=== PATIENT | male | born 1975 | race Caucasian/White ===

== ENCOUNTER 2016-11-27 13:03 | Inpatient (IN) | payer OTHER ==
[~2016-11-27] VITALS: Ht 172.7 cm; Wt 69.6 kg
[2016-11-27] VITALS (9 sets, daily range): BP systolic 110–127; BP diastolic 58–76; PULSE 80–98; RESP 13–21; O2SAT 99–100
[2016-11-27] MEDS: Octreotide Inj 500 MCG in 0.9% Sodium Chloride 99 ML IV SCH ×2 (14:25→19:39)
[2016-11-27] MEDS ORDERED: 0.9% Sodium Chloride 1,000 ML IV SCH (14:37)
[2016-11-27] MEDS ORDERED: Alum-Mag Hydrox-Simeth 30 mL Suspension PO PRN (14:40)
[2016-11-27] MEDS ORDERED: Senna-Docusate 8.6-50 mg Tablet PO PRN (14:40)
[2016-11-27] MEDS ORDERED: Ondansetron 2 mg/mL 2 mL Inj IVPUSH PRN ×2 (14:40→20:55)
[2016-11-27] MEDS ORDERED: Polyethylene Glycol (PEG) 17 Gm Powder PO PRN (14:40)
--- NOTE | 2016-11-27 14:49 | PCM.CHPMED ---
Subjective Date of Service: Nov 27, 2016 Primary Physician: Admitting Physician: Marito Rabago MD Primary Care Physician: Kulwinder Attending Physician: Marito Rabago MD Admit Status: Direct Admit, Non-Telemetry Chief Complaint: Chief Complaint: Reason for consultation: upper GI bleed History of Present Illness: GASTROENTEROLOGY CONSULTATION: Mr. Grabiel Gibson is a 41 yo man with history of alcohol use disorder, psoriasis, and depression who was sent to [facility] from [facility] for acute anemia likely secondary to upper GI bleed. The patient presented to the ED at [facility] for intermittent hematemesis in the last 4 days. He reports to wake up with severe bouts of hematemesis and dark, tarry stools at 0300 am on Friday 11/24. He assumed that it was from a Norovirus that has been going around the [place]. His symptoms spontaneously resolved, but he has been feeling very weak, fatigue, nauseous and short of breath. At around 1630 yester11/26, the hematemesis came back and his generalized weakness worsens. However, he has not had any BM since Thursday. [place] the ferry from [place] to the [facility] this morning and was found to have tachycardia (139) with a Hemoglobin of 4.0. U/S abdomen also showed portal vein thrombosis. He got 2 units of PRBCs and was transferred to [facility] for GI service. The patient reports history of heavy drinking in the last 8-9 years. He states that this started due to relationship issue and depression. He drinks about 4-5 shots of Whiskey per day or more. The last drink was last Wednesday 11/22. Patient also reports history of elevated LFTs on routine labs in March 2016. This has improved after he cut down the alcoholic consumption. Patient denies any history of GI bleed or was diagnosed of varices in the past. He has never had an endoscopy before. He admits to history of GERD. Patient denies daily NSAIDs or Tylenol use. He is not taking any medication at this point. No family history of liver disease or alcoholism. Currently, patient reports improvement after the blood transfusion. He denies any abdominal pain, nausea, vomiting, fever, chills, CP, or SOB. Review of Systems: Constitutional: Reports: Malaise, Weakness, Denies: Chills, Fever Eyes: Denies: Blurred Vision, Double Vision, Pain ENT: Denies: Ear Pain Neck: Denies: Pain, Swelling Cardiovascular: Reports: Palpitations, Rapid Heart Rate, SOB on Exertion, Denies: Chest Pain, Edema, Irregular Heart Rate Respiratory: Reports: SOB with Exertion, Shortness of Breath, Denies: Cough, Sputum, Wheezing Gastrointestinal: Reports: Black tarry stools, Change in Appetite, Constipation , Heartburn, Nausea, Vomiting (hematemesis), Denies: Abdominal Pain, Blood in stool (red), Diarrhea Genitourinary: Reports: No burning or pain with urination, Denies: Dysuria, Hematuria Skin: Reports: Dry or Flakiness, Itching, Lesions, Rash Neurological: Reports: Dizziness, Denies: Confusion, Difficulty Walking, Numbness Psychologic: Reports: Depression, Denies: Agitation, Anxiety H Past Medical History Alcohol use disorder Depression Psoriasis Surgical History Reports none Home Medications Reports none Allergies: Coded Allergies: No Known Allergies (Unverified , 11/27/16) Social History Hx Alcohol Use: Yes (>5 shots of Whiskey daily)Hx Substance Use: Yes ( occasional Marijuana use) Smoking Status: Current Every Day Smoker (1/2-1 ppd for 20 years) Living Arrangement: Alone (Lives on [place], .) Exam General: Alert, Oriented X3, Cooperative, No Acute Distress, Other (pale) Eyes: PERRLA, EOMI, Scleral Anicteric, Other (pale sclera) Mouth: Mouth Normal, Mucous Membr Moist/[place] Neck: Supple, No Thyromegaly Chest & Lungs: Chest Wall Normal, Clear to auscultation & percussion, No adventitious breath sounds Cardiovascular: Exam Unremarkable, Regular Rate/Rhythm, Normal S1, Normal S2, No Murmurs/Rubs/Gallops Abdomen: Non-distended, No hepatosplenomegaly, Normoactive bowel tones, Soft, Other (mild discomfort on palpation at the epigastric area) Musculoskeletal: Unremarkable, Normal Range of Motion Extremities: No cyanosis/clubbing/edma bilat Skin: Other (dry, flaky paches on the bilateral lower extremities. No jaundice. ) Neurological: Grossly Neurologically Intact, Normal Speech, Strength Normal 4/ 4 ext Assessment & Plan Assessment This is a 41 yo man with history of alcohol use disorder, psoriasis, and depression who was sent to [facility] from [facility] for acute anemia likely secondary to upper GI bleed. The patient presented to the ED at [facility] for intermittent hematemesis in the last 4 days. He also had an episode of melena. He was found to have profound acute anemia with hemoglobin of 4 s/p 2 units of PRBC transfusion. The U/S also showed evidence of portal vein thrombosis. The causes of upper GI bleed are likely to be esophageal varices bleeding vs. bleeding peptic ulcer vs. Cynthia-Lewis tears vs. acute stress gastritis vs. gastropathy. Impressions: 1. Acute anemia secondary to upper GI bleeding s/p 2 units of PRBC. 2. Thrombosis of portal veins on U/S abd. 3. History of alcoholic liver disease. Recommendations: - NPO - Initiate Protonix drip and Octreotide drip. - Repeat CBC, CMP, and Protime - Nadeau of an upper endoscopy was discussed with the patient and he agreed to proceed. Will plan for an EGD this afternoon. - Monitor serial H/H and transfusion as needed. We will defer the transfusion plan to the primary care team. - His AST/ALT ration is almost 2:1, which is consistent with alcohol abuse. However, will need to rule out hemochromatosis, Eleazar's disease, Celiac's disease, Thyroid dysfunction, fatty liver, alpha-1 antitrypsin, and hepatitis. - Check Lipid panel, Iron panel, ceruloplasmin, [id number], Transglutaminase IgA, TSH+FreeT4, and hepatitis panel. - Consider ordering the CT abdomen with contrast after the EGD to confirm the thrombosis of portal veins. Thank you for allowing us participate in this patient's care. Do not hesitate to contact us for any question. Problems: Pain Evaluation: Adequate Pain Control VTE Prophylaxis Indicated: Contraindicated (due to active bleeding) VTE Prophylaxis: SCDs Resuscitation Status: CPR: Attempt Resuscitation Attending Statement Patient seen and examined with resident physician please see her H and P for details 41 y/o man with ETOH abuse since age of 18, He drinks 1 bottle of bourbon daily , has done this for past 5 years states he drank less prior to this but did drink daily. reports he was told 1 year ago he had liver test abnormalities and was recommend ed to stop ETOH use he presented to outside hospital with hematemesis and melena. His initial hemoglobin was 4.1. He has no known history of jaundice, ascites, hepatic encephalopathy or prior hematemesis. He has no other complaints, denies abdominal pain. Plan for EGD once resuscitated with blood NPO 2 large bore IV Follow H/H an keep hemoglobin between 7-9 Octreotide and PPI drip IV ceftriaxone CT abdomen with contrast to evaluate ? portal vein thrombosis Discussed with primary team Chas Shirley DO Nov 27, 2016 14:49 Clint Garcia MD Nov 27, 2016 18:33
--- NOTE | 2016-11-27 15:03 | PCM.HPMED ---
Subjective Date of Service Nov 27, 2016 Primary Provider: Admitting Physician: Marito Rabago MD Primary Care Physician: Kulwinder Attending Physician: Marito Rabago MD Admit Status: Direct Admit, Full Admit, Admit to [facility] Team, Critical Care Chief Complaint: Recurrent hematemesis, GI bleed with significant acute blood loss anemia. History of Present Illness: This is a 46-year-old gentleman with a history of alcohol abuse who has had about 4 days of intermittent hematemesis and at least 2 episodes of black tarry stools. The patient has had progressive lightheadedness and weakness as well as dizziness. He had multiple episodes of hematemesis on Thursday morning, one episode on Thursday morning, and 2 episodes on Thursday. She ultimately took the ferry from [facility] was seen in the ER diagnosed with upper GI bleed with acute blood loss anemia and given 2 units of packed red blood cells. He denies really having any abdominal pain. He has no history of GI bleed. He rarely takes aspirin or ibuprofen or Aleve. He does have about a 20 year history of alcohol abuse but no clear-cut history of alcohol liver disease. He describes abnormal liver functions that his doctor warned may relate to alcohol. He has never had imaging of the liver that he is aware of. [facility] from [facility]. There was imaging basic concern for portal vein thrombosis. The patient is currently not a candidate for anticoagulation given his upper GI bleed of unclear etiology. This will be validated with imaging here, specifically CT scan of the abdomen and pelvis with contrast. Review of Systems: He denies headache, visual changes. No alcohol. Symptoms. Last drink was about 4 for 5 days ago. He has had relative cutback in the amount of alcohol use but using the last 6 months but still is essentially drinking on a daily basis. He denies any dysuria he has had oliguria however. He has felt dehydrated and generally weak. His pounding when standing. Also reviewed and otherwise negative except as noted in history of present illness. Allergies Coded Allergies: No Known Allergies (Unverified , 11/27/16) Home Medications Supplements PMH 1. Alcohol abuse Surgical History No past surgical history Family History Negative for alcohol abuse or liver disease or GI bleed. 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 No distress. Fluent speech. Normal affect. Normal skull. Normal nose and ears. Anicteric sclera, symmetric pupils Oropharynx is unremarkable, no facial droop. Neck is supple, normal thyroid. No adenopathy. Lungs are clear, normal effort rate. Heart is regular without murmur gallop or rub. Abdomen soft, nondistended or tender. Extremities are free of pedal edema. Good radial and pedal pulses. Skin is free of rash, lesions. No petechiae or ecchymosis. Joints are grossly normal. Cranial nerves are grossly normal. Motor strength is normal in all extremities. Normal muscular tone. Assessment & Plan 1. Acute upper GI bleed. POA. Differential is various ulcers or other cause. Plan is Protonix and octreotide drips. Serial hematocrits. Blood products as needed. Patient will undergo endoscopy this afternoon. 2. Acute blood loss anemia, POA. We will follow serial hematocrits and transfuse as necessary. 3. Alcohol abuse and possible dependence, POA. We will follow for evidence of occult OR fluid. We will also obtain liver functions and pro time now. 4. Possible portal vein thrombosis. POA. We will obtain a CT scan of the abdomen and pelvis with contrast to rule out portal vein thrombosis. This patient is full resuscitation. He is admitted inpatient status for an anticipated length of stay of over 2 nights. Resuscitation Status: CPR: Attempt Resuscitation Time spent 45 minute Celestine Campos MD Nov 27, 2016 15:03
--- NOTE | 2016-11-27 15:07 | NUR ---
[facility] [place] Admission note: From [facility] at 1400, vital signs stable, HR 80-90s/sinus, afebrile. RA sats 99-100%; SLs X2 bilat anticubital sites. Denies pain or nausea, appears in no distress. Stood indep. to transfer, appears steady. A/O and in good spirits. IVFs and Octreotide infusing; to start Protonix gtt when available. NPO for EGD this afternoon. No further emesis. Labs drawn, results pending.
[2016-11-27 15:09] LABS: BASOPHILS % (AUTO) 0.6 % (0-3); MONOCYTES % (AUTO) 15.3 % (4-12); Mean Corpuscular Hemoglobin 24.7 pg (27.0-35.0); Mean Corpuscular Volume 81.4 fL (81-100); NEUTROPHILS % (AUTO) 65.4 % (40-74); Platelet Count 134 bil/L (150-400)
[2016-11-27 15:25] LABS: INR 1.2 ratio
[2016-11-27] MEDS: 0.9% Sodium Chloride 1,000 ML IV SCH ×2 (15:25→23:21)
[2016-11-27] MEDS: 0.9% Sodium Chloride 250 ML IV SCH (15:30)
[2016-11-27 15:58] LABS: Magnesium 1.6 mg/dL (1.6-2.6)
[2016-11-27] MEDS ORDERED: MULT-544 PO (16:01)
--- NOTE | 2016-11-27 18:19 | DRSVH ---
PROCEDURE: CT ABDOMEN AND PELVIS WITH CONTRAST ([id number]) INDICATIONS: GI bleeding TECHNIQUE: After the administration of oral and intravenous contrast, 5 mm thick sections acquired from the diap hragms to the symphysis. 5 mm thick coronal and sagittal reformats were performed. For radiation do se reduction, the following was used: automated exposure control, adjustment of mA and/or kV accordi ng to patient size. COMPARISON: None. FINDINGS: Image quality: Excellent. ABDOMEN: Lung bases: Lung bases are clear. Heart size is normal. Solid organs: Liver is enlarged measuring 21.3 cm in longitudinal axis. Spleen is enlarged measurin g 14.4 cm in longitudinal axis. Liver has heterogeneous enhancement and slight not slightly nodular margins suggesting hepatic cirrhosis; please correlate with clinical and laboratory data. Prominent perihilar and gastroesophageal veins are noted suspicious for varices related to portal hypertension. Punctate calcification noted in the spleen compatible sequela of prior granulomatous disease. Gall bladder wall is slightly thickened. Small amount of pericholecystic fluid is noted.. Biliary system is non-dilated. Pancreas enhances normally. No adrenal nodules. Kidneys are normal in size and en hancement, without hydronephrosis. Peritoneum and bowel: Stomach, small bowel, and colon loops are normal in caliber. Wall thickening noted in the right and proximal transverse colon which could be due to nondistention versus colitis. No free fluid or air. Nodes and vessels: No retroperitoneal or mesenteric adenopathy. Aorta and inferior vena cava are no rmal in caliber. Miscellaneous: No ventral hernias. PELVIS: Genitourinary: Bladder wall thickness is normal. Miscellaneous: No inguinal hernias or adenopathy. Bones: No suspicious bony lesions. No vertebral body compression fractures. IMPRESSION: 1. Hepatosplenomegaly. 2. Liver is heterogeneous enhancement and slightly nodular margins suggesting hepatic cirrhosis. Pl ease correlate with clinical and laboratory data. 3. Prominent perisplenic and gastro-esophageal veins suspicious for varices related to sequela of po rtal venous hypertension. 4. No free intraperitoneal fluid or air. 5. No dilated loops of bowel. 6. Circumferential wall thickening involving the right colon and proximal transverse colon which cou ld be due to nondistention versus nonspecific colitis. Please correlate with clinical data. 7. Mild gallbladder wall thickening and small amount of pericholecystic fluid. Finding could be rel ated to adjacent hepatic disease versus acute cholecystitis. Recommend abdominal ultrasound if there is clinical concern for cholecystitis. Dictated by: Mary Jo Perez MD, PhD on 11/27/2016 at 18:10 Approved by: Mary Jo Perez MD, PhD on 11/27/2016 at 18:18
--- NOTE | 2016-11-27 19:27 | PCM.HPANE ---
Patient Data Surgeon Admitting Provider:Marito Rabago MD Attending Provider:Marito Rabago MD Primary Care Physician:Kulwinder Other Provider: Reason for Visit Upper Gi Bleed Ht/WT & BMI Height (Feet): 5 Height (Inches): 8.00 Weight (Kilograms): 65.800 Body Mass Index 21.00 Allergies Coded Allergies: No Known Allergies (Unverified , 11/27/16) Past Anesthesia History Anesthesia History: Denies:: Anesthesia Reactions, Malignant Hyperthermia Diabetes History Hx Diabetes?: No MRSA MRSA: No Medications Hypertension Medication: No Home Meds Incl Beta Negro: No Reported Medications Multivitamin (Men's Multi-Vitamin)1 Each Tablet1 Each PO DAILY 11/27/16 History History of ENT Problems?: No HEENT History: Denies:: Hearing Problem Denture Type: None Teeth Condition: Within Normal Limits Hx of Heart Problems?: No Cardiovascular History: Denies:: AICD Abdominal Aortic Aneurism Atrial Fibrillation Cardiac Surgery Chest Pain Congestive Heart Failure Coronary Artery Disease Edema Heart Murmur Hypertension Irregular Heartbeat Pacemaker Peripheral Vascular Rheumatic Fever Thrombophlebitis Valvular Heart Disease Hx of Respiratory Problem?: No Respiratory History: Denies:: Asthma COPD Chest Surgery Cough Dyspnea Emphysema Hemoptysis Oxygen Administration Pneumonia Pulmonary Embolism Tuberculosis Use of C-PAP Machine Use of Inhalers / NEBS Hx Neurologic Problems?: No Neurological History: Denies:: CVA Hx of GI Problems?: Yes Gastrointestinal History: Positive for:: Cirrhosis Hx of Problems?: No HX of Peritoneal Dialysis: No Other Skin Pertinent History: HX PSORIASIS Hx Musculoskeletal Problems?: No Psycho Social History: Positive for:: Anxiety Hx Depression Hx Surgeries?: No (none) Hx Any Other Health Problems?: Yes History Blood Transfusions: Positive for:: Accept Blood Products? 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 Hx Alcohol Use: Yes (>5 shots of Whiskey daily)Alcoholic Drinks Per Day: 1-2 Hx Substance Use: Yes (occasional Marijuana use) Smoking Status: Current Every Day Smoker Stop/Bang Treated for Sleep Apnea?: No Do You Have a CPAP Machine?: No S-Snoring: Do You Snore Loudly: No T-Tired: feel tired, fatigued: No O-Obsered: Observed not breath: No P-Blood Pressure: treated: No B- Body Mass Index > 35 kg/m2: No A- Age over 50: No N- Neck Large Circumference: No G- Gender Male: Yes JACKI Total Score: 1 JACKI Risk Assessment: Low Risk, <3 Yes Risk Assessment Category Category 1A: Patient has history of documented sleep apnea, and HAS NOT received any narcotic, sedative or anesthesia administration during this stay. Category 1B: Patient has history of documented sleep apnea, and HAS received any narcotic , sedative or anesthesia administration during this stay Category 2: Patient has SUSPECTED Obstructive Sleep Apnea, and HAS received any narcotic , sedative or anesthesia administration during this stay. Category 3: Patient has SUSPECTED Obstructive Sleep Apnea and HAS NOT received narcotic, sedative or anesthesia administration during this stay. Category 4: Outpatient in Procedural Areas with known sleep apnea or who screen positive for High Risk via the STOP/BANG questionnaire. Exam Exam Vital Signs Vital Signs Date Time Temp Pulse Resp B/P Pulse Ox O2 Delivery O2 Flow Rate FiO2 11/27/16 14:00 35.9 98 19 120/66 99 Room Air General Appearance: Alert, Oriented X3, Cooperative, No Acute Distress, Other ( pale) HEENT/AIRWAY: MP 2, Neck Movement Lungs: Normal Air Movement Heart: Regular Rate/Rhythm Meds/Labs/Diagnostics Labs Test 11/27/16 14:37 11/27/16 15:00 Lactic Acid Level 0.9mmol/L (0.4-2.0) White Blood Count 9.0th/mm3 (3.8-10.1) Red Blood Count 2.47mil/mm3 (4.40-5.80) Hemoglobin 6.1g/dL (13.8-17.2) Hematocrit 20.1% (41.0-50.0) Mean Corpuscular Volume 81.4fL (81-100) Mean Corpuscular Hemoglobin 24.7pg (27.0-35.0) Mean Corpuscular Hemoglobin Concent 30.3% (32.0-37.0) Red Cell Distribution Width 19.5% (12.3-15.4) Platelet Count 134bil/L (150-400) Neutrophils (%) (Auto) 65.4% (40-74) Lymphocytes (%) (Auto) 16.9% (14-46) Monocytes (%) (Auto) 15.3% (4-12) Eosinophils (%) (Auto) 1.0% (0-5) Basophils (%) (Auto) 0.6% (0-3) Prothrombin Time 12.9sec (8.1-12.5) Prothromb Time International Ratio 1.20ratio Sodium Level 134mEq/L (134-144) Potassium Level 3.8mEq/L (3.5-5.2) Chloride Level 97mEq/L (97-108) Carbon Dioxide Level 20mmol/L (18-29) Blood Urea Nitrogen 16mg/dL (6-24) Creatinine 0.60mg/dL (0.76-1.27) Estimat Glomerular Filtration Rate 159mL/min (>59) Glucose Level 102mg/dL (60-99) Calcium Level 7.8mg/dL (8.5-10.1) Magnesium Level 1.6mg/dL (1.6-2.6) Total Bilirubin 1.5mg/dL (0.0-1.2) Aspartate Amino Transf (AST/SGOT) 65U/L (0-50) Alanine Aminotransferase (ALT/SGPT) 27U/L (0-44) Alkaline Phosphatase 97U/L (25-150) Total Protein 5.6g/dL (6.4-8.4) Albumin 3.6g/dL (3.4-5.0) Prealbumin 14mg/dL (20-40) Plan Impression Patient chart reviewed, patient interviewed and anesthestic plan with risks, benefits, and alternatives discussed, and informed consent obtained. ASA Physical Status: ASA4 Plus Emergency Anesthetic Plan: GA Bene/Risks/Altern/Consents: Yes HP Complete Prior to Induction: Yes Karthik Leonard MD Nov 27, 2016 19:27
[2016-11-27] MEDS: Pantoprazole Inj 80 MG in 0.9% Sodium Chloride 80 ML IV SCH ×2 (19:46→21:16)
[2016-11-27] MEDS ORDERED: Lactated Ringer's 1,000 ML IV SCH (20:53)
--- NOTE | 2016-11-27 20:54 | PCM.ANEP1 ---
Post Anesthesia Phase 1 PACU Phase 1 Assessment Date of Service: Nov 27, 2016 Vital Signs Vital Signs Date Time Temp Pulse Resp B/P Pulse Ox O2 Delivery O2 Flow Rate FiO2 11/27/16 20:15 36.6 80 16 114/69 11/27/16 20:01 36.8 80 16 113/68 11/27/16 19:45 36.8 83 16 111/67 11/27/16 19:33 37.4 84 17 111/67 11/27/16 19:24 37.4 84 17 113/67 99 Room Air 11/27/16 14:00 35.9 98 19 120/66 99 Room Air Anesthetic Administered: GA Level of Alertness: Sleepy, easy to arouse Pain: No Nausea or Vomiting: No Cardiovascular Function and Hy: No Lungs: Normal Air Movement Karthik Leonard MD Nov 27, 2016 20:54
[2016-11-27] MEDS ORDERED: MetoCLOpramide 5 mg/mL 2 mL Inj IVPUSH PRN (20:55)
--- NOTE | 2016-11-27 23:53 | ENDO ---
[address] [address] ENDOSCOPY PROCEDURE PATIENT: KYLE CHEW : 1975 MR#: [id number] ADMIT: 11/27/2016 JOB ID: [id number] DATE OF PROCEDURE: PROCEDURE: Esophagogastroduodenoscopy. INDICATION: Hematemesis. SEDATION: Please see Dr. Karthik Leonard's anesthesia report for details regarding ASA classification, Mallampati score, medications. INSTRUMENT USED: [id number]. PROCEDURE DETAILS: After informed consent was obtained, the patient was brought into the GI suite, where he was placed on oxygen via nasal cannula and monitored with continuous pulse oximeter, telemetry, and blood pressure monitoring. A time-out was performed. Then, he was placed in the left lateral decubitus position and medications were administered for sedation. A bite block was placed. The standard EGD scope was then inserted through the bite block and advanced under direct visualization to the second portion of the duodenum without difficulty. FINDINGS: 1. Normal appearing duodenal bulb, first and second portion. Bile-stained mucosa was noted. No old or fresh blood was seen. 2. Normal appearing pylorus. In the antrum and body of the stomach the mucosa had a mosaic appearance consistent with portal gastropathy. 3. Retroflexed views in the gastric body revealed mucosa with portal with mosaic appearance. No gastric varices were appreciated. 4. The GE junction was at approximately 39 cm. And arising from 38 cm to 30 cm were two large columns of varices. One column had a red amada sign in the distal portion just above the GE junction. Three bands were placed successfully using a [employer] 7 band kit. IMPRESSION: 1. Large esophageal varices with red amada sign, status post band ligation with three bands. 2. Portal gastropathy. RECOMMENDATIONS: 1. N.p.o., no NG or OG tubes. 2. Continue to follow H and H every 8 hours and keep hemoglobin above 7. 3. Discontinue Protonix drip and would recommend Protonix 40 mg IV daily. 4. N.p.o. 5. Continue ICU monitoring. 6. Ceftriaxone 2 g IV daily. 7. Complete chronic liver disease workup. COMPLICATIONS: None. ESTIMATED BLOOD LOSS: less than 5ml MTDD
[2016-11-28] VITALS (8 sets, daily range): BP systolic 111–125; BP diastolic 61–72; PULSE 81–99; RESP 12–24; O2SAT 94–97
[2016-11-28 00:14] LABS: Magnesium 1.6 mg/dL (1.6-2.6); TROPONIN T 0.01 ug/L (0.0-0.011)
[2016-11-28] MEDS ORDERED: Magnesium Sulf 2 Gm/50mL Water 2 GM in IV Premix 1 EACH IV ONE (00:50)
[2016-11-28 03:47] LABS: Mean Corpuscular Hemoglobin 25.8 pg (27.0-35.0)
[2016-11-28 04:20] LABS: Unsaturated Iron Binding 326.5 ug/dL
--- NOTE | 2016-11-28 05:34 | NUR ---
GI/Endo Patient rested well this shift, went to endo about 1944 and back at 2109, had 1 episode of severe chest discomfort about 2229, MD notified and EKG/Troponin ordered, Morphine 1mg given with good relief, pain level was 8/10 prior to Morphine and 2/10 pain within 30 min, patient denied pain this AM at 0430, no c/o this AM, pleasant and cooperative, strict NPO since endo procedure, will continue to monitor.
[2016-11-28] MEDS: cefTRIAXone Inj 2,000 MG in Dextrose 5% Minibag Plus 50 ML IV SCH (07:38)
--- NOTE | 2016-11-28 07:49 | PCM.PNMED ---
Subjective Date of Service Nov 28, 2016 Subjective Patient is doing well this morning. He had some limited chest pain last night. He underwent endoscopy yesterday with banding of esophageal varices. No evidence of recurrent bleeding. No nausea. No abdominal pain. No shortness of breath. No other overnight events other than limited chest pressure. He has received 2 units of packed red blood cells at outside hospital in 2 units here. His hematocrit appears to be stable overnight. Exam Vital Signs Vital Sign - Last Date Time Temp Pulse Resp B/P Pulse Ox O2 Delivery O2 Flow Rate FiO2 11/28/16 07:33 37.4 82 12 122/61 94 Nasal Cannula 1.00 Intake and Output 11/27/16 11/27/16 11/28/16 Cumulative From/Thru 15:00 23:00 07:00 11/25/16 14:00 - 11/28/16 05:37 Intake Total 875 ml 924 ml 1799 ml Output Total 0 ml 1050 ml 1050 ml Balance 875 ml -126 ml 749 ml Intake Oral 0 ml 0 ml IV Total 175 ml 924 ml 1099 ml Packed Cells 700 ml 700 ml Output Urine Total 0 ml 1050 ml 1050 ml Exam Alert and oriented -3, no distress. Fluent speech Anicteric sclera. Lungs are clear with normal rate and effort Heart is regular without murmur gallop or rub Abdomen soft nontender, flat Extremities are free of edema. Skin is free of rash or lesions. IVs and Medications Medications Reviewed: Medications were reviewed in detail Lab and Diagnostics Result Diagram: 11/28/16 0700 11/28/16 0330 Assessment & Plan #. Acute upper GI bleed secondary to esophageal varices.. POA. Stable. The patient is status post endoscopy and ligation banding. He is on octreotide as well as IV Protonix. We will follow his hematocrit serially, nothing by mouth. #. Acute blood loss anemia, POA. We will follow serial hematocrits and transfuse as necessary. He has had 2 units thus far. #. Alcohol abuse and possible dependence, POA. We will follow for evidence of occult OR fluid. We will also obtain liver functions and pro time now. Imaging does indicate evidence of alcohol-induced liver cirrhosis. #. Alcohol induced liver cirrhosis, POA. The patient is on empiric ceftriaxone although imaging does not indicate evidence of ascites. The importance of alcohol cessation was discussed with the patient today. #. Possible portal vein thrombosis. Was ruled out with CT with contrast. #. 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 Oral institute metal wall when clinically stable. This patient is full resuscitation. He is admitted inpatient status for an anticipated length of stay of over 2 nights. VTE Prophylaxis: SCDs Resuscitation Status: CPR: Attempt Resuscitation Celestine Campos MD Nov 28, 2016 07:49
[2016-11-28] MEDS: Octreotide Inj 500 MCG in 0.9% Sodium Chloride 99 ML IV SCH ×2 (08:25→17:42)
[2016-11-28] MEDS: 0.9% Sodium Chloride 1,000 ML IV SCH ×2 (09:07→22:01)
[2016-11-28] MEDS: Pantoprazole 4 mg/mL 10 mL Inj IVPUSH SCH (09:07)
--- NOTE | 2016-11-28 13:33 | PCM.PNMED ---
Subjective Date of Service Nov 28, 2016 Subjective GASTROENTEROLOGY PROGRESS NOTE: Patient reports to feel better, thirsty, and hungry this morning. He reports some chest pain right after the endoscopy last night that improved with pain medication. Otherwise, he denies any nausea, vomiting, hematemesis, or BM. He has no complaint today. Hemoglobin has been stable at 8.7 and patient has no other signs of over GI bleeding. Exam Vital Signs Vital Sign - Last Date Time Temp Pulse Resp B/P Pulse Ox O2 Delivery O2 Flow Rate FiO2 11/28/16 07:33 37.4 82 12 122/61 94 Nasal Cannula 1.00 Intake and Output 11/27/16 11/27/16 11/28/16 Cumulative From/Thru 15:00 23:00 07:00 11/25/16 14:00 - 11/28/16 05:37 Intake Total 875 ml 924 ml 1799 ml Output Total 0 ml 1050 ml 1050 ml Balance 875 ml -126 ml 749 ml Intake Oral 0 ml 0 ml IV Total 175 ml 924 ml 1099 ml Packed Cells 700 ml 700 ml Output Urine Total 0 ml 1050 ml 1050 ml Exam General: Alert, Oriented X3, Cooperative, No Acute Distress Eyes: PERRLA, EOMI, Scleral Anicteric Mouth: Mouth Normal, Mucous Membr Moist/[place] Neck: Supple, No Thyromegaly Chest & Lungs: Chest Wall Normal, Clear to auscultation & percussion, No adventitious breath sounds Cardiovascular: Exam Unremarkable, Regular Rate/Rhythm, Normal S1, Normal S2, No Murmurs/Rubs/Gallops Abdomen: Non-distended, Soft, mild discomfort on palpation at the epigastric area. No rebound or guarding. No hepatosplenomegaly, Normoactive bowel tones. Extremities: No cyanosis/clubbing/edma bilat Skin: dry, flaky psoriatic patches on the bilateral lower extremities. Psoriatic finger nails. No jaundice. Neurological: Grossly Neurologically Intact, Normal Speech, Strength Normal 11/04 ext IVs and Medications Medications Reviewed: Medications were reviewed in detail Lab and Diagnostics Result Diagram: 11/28/16 0700 11/28/16 0330 X-Rays, CTs and MRIs PROCEDURE: CT ABDOMEN AND PELVIS WITH CONTRAST IMPRESSION: 1. Hepatosplenomegaly. 2. Liver is heterogeneous enhancement and slightly nodular margins suggesting hepatic cirrhosis. Please correlate with clinical and laboratory data. 3. Prominent perisplenic and gastro-esophageal veins suspicious for varices related to sequela of portal venous hypertension. 4. trace free fluid noted in the lower pelvis. No free intraperitoneal air.. 5. No dilated loops of bowel. 6. Circumferential wall thickening involving the right colon and proximal transverse colon which could be due to nondistention versus less likely nonspecific colitis. Please correlate with clinical data. 7. Mild gallbladder wall thickening and small amount of pericholecystic fluid. Finding could be related to adjacent hepatic disease versus acute cholecystitis. Recommend abdominal ultrasound if there is clinical concern for cholecystitis. ADDENDUM: Correction made to typographical error in the impression Dictated by: Mary Jo Perez MD, PhD on 11/27/2016 at 18:31 Approved by: Mary Jo Perez MD, PhD on 11/27/2016 at 18:32 Assessment & Plan This is a 41 yo man with history of alcohol use disorder, psoriasis, and depression who was sent to [facility] from [facility] for acute anemia likely secondary to upper GI bleed. The patient presented to the ED at [facility] for intermittent hematemesis in the last 4 days. He also had an episode of melena. He was found to have profound acute anemia with hemoglobin of 4.1 s/p total of 4 units of PRBC transfusion. The U/S at [facility] showed possible portal vein thrombosis, but this was ruled out by abdominal CT. There was also heterogeneous enhancement and slightly nodular margins suggesting hepatic cirrhosis on the CT scan. Patient is Child-Mccarthy Class B with a MELD score of 11. Fe/TIBC is low, thus ruled out hemochromatosis. Normal TSH. Pending hepatitis panel and other chronic liver disease labs. s/p EGD 11/27/16 IMPRESSION: 1. Large esophageal varices with red amada sign, status post band ligation with three bands. 2. Portal gastropathy. RECOMMENDATIONS: - Advance diet to clear liquid. Can advance diet as tolerated tomorrow if patient has no overt signs of bleeding with stable H/H. - Continue to monitor serial H and H and keep hemoglobin above 7. - Continue Protonix 40 mg IV daily. - Continue Octreotide ggt for a total of 72 hours (started on 11/27). - Continue Ceftriaxone 2 g IV daily for SBP prophylaxis (Day 2). - Follow up with pending hepatic labs. - Patient is a high risk for re-bleeding and will likely need to repeat the EGD in 2 weeks for additional banding. - Will consider variceal hemorrhage prophylaxis with Nadolol 40mg PO daily at discharge. - Alcohol cessation discussed with the patient. Thank you for allowing us participate in this patient's care. Do not hesitate to contact us for any question. Pain Evaluation: Adequate Pain Control GI Prophylaxis: Proton Pump Inhibitor VTE Prophylaxis: SCDs Resuscitation Status: CPR: Attempt Resuscitation Attending Statement Patient seen and examined agree with resident physician note Chas Shirley DO Nov 28, 2016 09:08 Clint Garcia MD Nov 30, 2016 10:44
[2016-11-28] MEDS: 0.9% Sodium Chloride 250 ML IV SCH (15:30)
--- NOTE | 2016-11-28 17:12 | NUR ---
Social Work: Screen D: Per EMR review, pt is a 41 year old male admitted for upper GI Bleed. Pt is [facility]. PCP is not listed. NOK is Pamela Gibson, mother. Advanced directives information provided to pt at bedside. Readmit score is low, 1/8. Pt is from [place] and lives alone. Pt received 4 units of blood transfusion. Pt has been I during admission. Per H&P pt has a 20 year history of ETOH use which may be contributing to current medical condition. Pt not currently on CIWA. HOSE TESTER will discuss with MD at AM rounds if CD assessment is necessary for this pt. A: Pt who is I at baseline. P: Anticipate pt to return home when medically stable; HOSE TESTER to follow up with MD re: CD assessment/resources. SHARIFA Zelaya
--- NOTE | 2016-11-28 17:19 | NUR ---
GI/cardiac/pain Patient without complaints. No reported pain at this time. VSS. SR per school lunch monitor. Tolerating clear liquids. Denies nausea. Hgb 9.5. No evidence of bleeding. Will continue to monitor.
[2016-11-29] VITALS (8 sets, daily range): BP systolic 112–130; BP diastolic 71–76; PULSE 80–100; RESP 14–18; O2SAT 93–97
[2016-11-29] MEDS: Octreotide Inj 500 MCG in 0.9% Sodium Chloride 99 ML IV SCH ×2 (03:11→17:24)
[2016-11-29 03:12] LABS: Hepatitis A Antibody IgM Negative (Negative); Hepatitis B Core Antibody IgM Negative (Negative)
--- NOTE | 2016-11-29 05:51 | NUR ---
GI/Octreotide Patient tolerating clear liquids. Denies pain, chest pain, shortness of breath. No sign of bleeding. Octreotide infusion continues at 10ml/hour with NS at 100. Continue to monitor.
[2016-11-29] MEDS: cefTRIAXone Inj 2,000 MG in Dextrose 5% Minibag Plus 50 ML IV SCH ×2 (07:00→10:30)
--- NOTE | 2016-11-29 08:16 | PCM.PNMED ---
Subjective Date of Service Nov 29, 2016 Subjective Slight cough. No dyspnea or fever. No rhinorrhea. He has no abdominal pain nausea or bowel movement. He is having flatus. No urination issues with pain or other. No confusion. Exam Vital Signs Vital Sign - Last Date Time Temp Pulse Resp B/P Pulse Ox O2 Delivery O2 Flow Rate FiO2 11/29/16 05:24 85 11/29/16 04:01 37.3 16 127/71 93 Room Air 11/28/16 07:33 1.00 Intake and Output 11/28/16 11/28/16 11/29/16 Cumulative From/Thru 15:00 23:00 07:00 11/25/16 14:00 - 11/29/16 06:09 Intake Total 2434 ml 1544 ml 5777 ml Output Total 1200 ml 1000 ml 3250 ml Balance 1234 ml 544 ml 2527 ml Intake Oral 875 ml 200 ml 1075 ml IV Total 1559 ml 1344 ml 4002 ml Packed Cells 700 ml Output Urine Total 1200 ml 1000 ml 3250 ml # Voids 3 3 Exam Alert and oriented -3, no distress. Fluent speech Anicteric sclera. Lungs are clear with normal rate and effort Heart is regular without murmur gallop or rub Abdomen soft nontender, flat Extremities are free of edema. Skin is free of rash or lesions. IVs and Medications Medications Reviewed: Medications were reviewed in detail Lab and Diagnostics Result Diagram: 11/28/16 2320 11/28/16 0330 X-Rays, CTs and MRIs PROCEDURE: CT ABDOMEN AND PELVIS WITH CONTRAST IMPRESSION: 1. Hepatosplenomegaly. 2. Liver is heterogeneous enhancement and slightly nodular margins suggesting hepatic cirrhosis. Please correlate with clinical and laboratory data. 3. Prominent perisplenic and gastro-esophageal veins suspicious for varices related to sequela of portal venous hypertension. 4. trace free fluid noted in the lower pelvis. No free intraperitoneal air.. 5. No dilated loops of bowel. 6. Circumferential wall thickening involving the right colon and proximal transverse colon which could be due to nondistention versus less likely nonspecific colitis. Please correlate with clinical data. 7. Mild gallbladder wall thickening and small amount of pericholecystic fluid. Finding could be related to adjacent hepatic disease versus acute cholecystitis. Recommend abdominal ultrasound if there is clinical concern for cholecystitis. ADDENDUM: Correction made to typographical error in the impression Dictated by: Mary Jo Perez MD, PhD on 11/27/2016 at 18:31 Approved by: Mary Jo Perez MD, PhD on 11/27/2016 at 18:32 Assessment & Plan #. Acute upper GI bleed secondary to esophageal varices.. POA. Stable and resolved.. The patient will continue on clear liquids and likely advance to regular diet this afternoon. We will continue serial hematocrits, Protonix IV as well as octreotide through tomorrow morning. #. Acute blood loss anemia, POA. Stable. Continue serial hematocrits. #. Alcohol abuse and possible dependence, POA. No evidence of withdrawal. We will continue to follow clinically. Continue support absolute alcohol abstinence. #. Alcohol induced liver cirrhosis, POA. The patient is on empiric ceftriaxone although imaging does not indicate evidence of ascites. The importance of alcohol cessation was discussed with the patient today. #. Possible portal vein thrombosis. Was ruled out with CT with contrast. #. 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 Oral institute metal wall when clinically stable. This patient is full resuscitation. Patient status GI Prophylaxis: Proton Pump Inhibitor VTE Prophylaxis: SCDs Resuscitation Status: CPR: Attempt Resuscitation Celestine Campos MD Nov 29, 2016 08:16
[2016-11-29] MEDS: Pantoprazole 4 mg/mL 10 mL Inj IVPUSH SCH (08:30)
[2016-11-29 09:11] LABS: Alpha-1-Antitrypsin, Serum 196 mg/dL (90-200)
[2016-11-29] MEDS: 0.9% Sodium Chloride 1,000 ML IV SCH (11:45)
[2016-11-29] MEDS: 0.9% Sodium Chloride 250 ML IV SCH (14:50)
--- NOTE | 2016-11-29 15:45 | PCM.PNMED ---
Subjective Date of Service Nov 29, 2016 Subjective no complaints ambulating melchor without assistance no further melena or hematemesis tolerating clears no abdominal pain, nausea or vomiting Exam Vital Signs Vital Sign - Last Date Time Temp Pulse Resp B/P Pulse Ox O2 Delivery O2 Flow Rate FiO2 11/29/16 13:00 90 11/29/16 11:47 37.0 16 117/74 97 Room Air 11/28/16 07:33 1.00 Intake and Output 11/28/16 11/28/16 11/29/16 Cumulative From/Thru 15:00 23:00 07:00 11/25/16 14:00 - 11/29/16 06:09 Intake Total 2434 ml 1544 ml 5777 ml Output Total 1200 ml 1000 ml 3250 ml Balance 1234 ml 544 ml 2527 ml Intake Oral 875 ml 200 ml 1075 ml IV Total 1559 ml 1344 ml 4002 ml Packed Cells 700 ml Output Urine Total 1200 ml 1000 ml 3250 ml # Voids 3 3 Exam Gen- oriented to person , place and time HEENT- no icterus RESP- clear to auscultation bilaterally CVS-rrr abdomen-soft, nontender, non distended, liver edge palpable as well as spleen tip ext-trace edema Lab and Diagnostics Result Diagram: 11/28/16 2320 11/28/16 0330 X-Rays, CTs and MRIs PROCEDURE: CT ABDOMEN AND PELVIS WITH CONTRAST IMPRESSION: 1. Hepatosplenomegaly. 2. Liver is heterogeneous enhancement and slightly nodular margins suggesting hepatic cirrhosis. Please correlate with clinical and laboratory data. 3. Prominent perisplenic and gastro-esophageal veins suspicious for varices related to sequela of portal venous hypertension. 4. trace free fluid noted in the lower pelvis. No free intraperitoneal air.. 5. No dilated loops of bowel. 6. Circumferential wall thickening involving the right colon and proximal transverse colon which could be due to nondistention versus less likely nonspecific colitis. Please correlate with clinical data. 7. Mild gallbladder wall thickening and small amount of pericholecystic fluid. Finding could be related to adjacent hepatic disease versus acute cholecystitis. Recommend abdominal ultrasound if there is clinical concern for cholecystitis. ADDENDUM: Correction made to typographical error in the impression Dictated by: Mary Jo Perez MD, PhD on 11/27/2016 at 18:31 Approved by: Mary Jo Perez MD, PhD on 11/27/2016 at 18:32 Assessment & Plan Bleeding esophageal varices -H/H stable, no ofurther bleeding -s/p EGD with band ligation -continue octreotide for 24 hours then discontinue -start nadolol 40mg at bedtime -repeat EGD as outpatient in 2 weeks Cirrhosis/portal hypertension -complete chronic liver disease work up as outpatient -recommend ETOH abuse counseling Ascites -mild -recommend low sodium less than 2000mg Na diet GI Prophylaxis: Proton Pump Inhibitor VTE Prophylaxis: SCDs Resuscitation Status: CPR: Attempt Resuscitation Clint Garcia MD Nov 29, 2016 15:45
--- NOTE | 2016-11-29 19:00 | NUR ---
To [facility] rm 2023/General Diet tai well Tolerated dinner well; up ambulating without difficulty in room & melchor. No signs/sx of bleeding. Pt reports had one dark brown stool today but flushed it before reporting it. Octreotide gtt continuing @ 10cc/hr, until 72hr period completed thursday mid afternoon.
[2016-11-30 00:25] VITALS: BP 117/75; PULSE 79; RESP 20; O2SAT 97
[2016-11-30] MEDS: Octreotide Inj 500 MCG in 0.9% Sodium Chloride 99 ML IV SCH ×2 (01:09→11:58)
--- NOTE | 2016-11-30 01:18 | NUR ---
activity patient ambulated in melchor. approximately 3 laps. denies dyspnea. denies sypmtoms
[2016-11-30 04:58] VITALS: BP 121/74; PULSE 72; PULSE 95; RESP 18; O2SAT 97
[2016-11-30 08:52] VITALS: BP 149/84; PULSE 79; RESP 18; O2SAT 97
[2016-11-30] MEDS: Pantoprazole 4 mg/mL 10 mL Inj IVPUSH SCH (09:05)
[2016-11-30] MEDS: cefTRIAXone Inj 2,000 MG in Dextrose 5% Minibag Plus 50 ML IV SCH (09:07)
[2016-11-30 09:54] LABS: Mean Corpuscular Hemoglobin 25.7 pg (27.0-35.0); Mean Corpuscular Volume 81.7 fL (81-100)
--- NOTE | 2016-11-30 10:04 | PCM.PNMED ---
Subjective Date of Service Nov 30, 2016 Subjective no complaints no bleeding tolerating diet wants to go home Exam Vital Signs Vital Sign - Last Date Time Temp Pulse Resp B/P Pulse Ox O2 Delivery O2 Flow Rate FiO2 11/30/16 08:52 37.2 79 18 149/84 97 Room Air 11/28/16 07:33 1.00 Intake and Output 11/29/16 11/29/16 11/30/16 Cumulative From/Thru 15:00 23:00 07:00 11/25/16 14:00 - 11/30/16 04:57 Intake Total 1121 ml 815 ml 7713 ml Output Total 3250 ml Balance 1121 ml 815 ml 4463 ml Intake Oral 250 ml 780 ml 2105 ml IV Total 871 ml 35 ml 4908 ml Packed Cells 700 ml Output Urine Total 3250 ml # Voids 3 # Bowel Movements 0 1 1 Exam Gen- oriented to person , place and time HEENT- no icterus RESP- clear to auscultation bilaterally CVS-rrr abdomen-soft, nontender, non distended, liver edge palpable as well as spleen tip ext-trace edema Lab and Diagnostics Result Diagram: 11/30/16 0927 11/28/16 0330 X-Rays, CTs and MRIs PROCEDURE: CT ABDOMEN AND PELVIS WITH CONTRAST IMPRESSION: 1. Hepatosplenomegaly. 2. Liver is heterogeneous enhancement and slightly nodular margins suggesting hepatic cirrhosis. Please correlate with clinical and laboratory data. 3. Prominent perisplenic and gastro-esophageal veins suspicious for varices related to sequela of portal venous hypertension. 4. trace free fluid noted in the lower pelvis. No free intraperitoneal air.. 5. No dilated loops of bowel. 6. Circumferential wall thickening involving the right colon and proximal transverse colon which could be due to nondistention versus less likely nonspecific colitis. Please correlate with clinical data. 7. Mild gallbladder wall thickening and small amount of pericholecystic fluid. Finding could be related to adjacent hepatic disease versus acute cholecystitis. Recommend abdominal ultrasound if there is clinical concern for cholecystitis. ADDENDUM: Correction made to typographical error in the impression Dictated by: Mary Jo Perez MD, PhD on 11/27/2016 at 18:31 Approved by: Mary Jo Perez MD, PhD on 11/27/2016 at 18:32 Assessment & Plan Bleeding esophageal varices -H/H stable, no further bleeding -s/p EGD with band ligation -continue octreotide for 24 hours then discontinue -start nadolol 40mg at bedtime -repeat EGD as outpatient in 2 weeks Cirrhosis/portal hypertension -complete chronic liver disease work up as outpatient -recommend ETOH abuse counseling Ascites -mild -recommend low sodium less than 2000mg Na diet GI Prophylaxis: Proton Pump Inhibitor VTE Prophylaxis: SCDs Resuscitation Status: CPR: Attempt Resuscitation Clint Garcia MD Nov 30, 2016 10:04
--- NOTE | 2016-11-30 10:35 | NUR ---
Social Work: Discharge Data: Pt is on day 3 of hospitalization. EMR reviewed, pt discussed in rounds. states pt will d/c today. COMPUTER ANIMATOR met with pt regarding alcohol use. Pt declined full assessment at this time but accepted information, CD resources given, Rethinking Drinking given. Pt states he has made up his mind to stop drinking for the benefit of his health, that he knows when and where meetings are on [place] where he lives and that he has a good support system to help him. No further COMPUTER ANIMATOR needs at this time. COMPUTER ANIMATOR will continue to follow if needs arise. Assessment: Pt who is independent at baseline, 20 yr alcohol use. Plan: Pt will d/c home via POV today. CD resources given. No further COMPUTER ANIMATOR needs at this time. COMPUTER ANIMATOR will continue to follow if needs arise. SHARIFA Fry
[2016-11-30] MEDS ORDERED: NADO40TA PO (10:43)
--- NOTE | 2016-11-30 10:43 | PCM.DIMED ---
Discharge Instructions Date of Service Nov 30, 2016 Dates of Hospitalization Nov 27, 2016 at 13:56 Discharge Diagnosis Discharge Diagnosis #. Acute upper GI bleed secondary to esophageal varices. #. Acute blood loss anemia. #. Alcohol abuse and possible dependence. #. Alcohol induced liver cirrhosis. #. Portal vein hypertension . Diet No restrictions Activity No restrictions Call your provider Fever or Chills, Shortness of breath Patient Instructions No alcohol. Gastroenterology will call you with follow-up appointment within 2 weeks. Note Tylenol was given also irritate the liver. Follow-up Provider: Clint Garcia MD Follow-up with PCP in: 2 weeks Celestine Campos MD Nov 30, 2016 10:43
--- NOTE | 2016-11-30 10:46 | PCM.DC.MED ---
Discharge Summary Date of Service Nov 30, 2016 Dates of Hospitalization Date of Hospital Admission Nov 27, 2016 at 13:56 Date of Discharge: Nov 30, 2016 Providers: Admitting Physician: Marito Rabago MD Primary Care Physician: Nopcp Attending Physician: Marito Rabago MD Diagnosis at Time of Discharge Diagnosis at Time of Discharge #. Acute upper GI bleed secondary to esophageal varices. #. Acute blood loss anemia. #. Alcohol abuse and possible dependence. #. Alcohol induced liver cirrhosis. #. Portal vein hypertension . Consultations Gastroenterology, Dr. Nolasco Procedures XRay, CTs & MRIs PROCEDURE: CT ABDOMEN AND PELVIS WITH CONTRAST IMPRESSION: 1. Hepatosplenomegaly. 2. Liver is heterogeneous enhancement and slightly nodular margins suggesting hepatic cirrhosis. Please correlate with clinical and laboratory data. 3. Prominent perisplenic and gastro-esophageal veins suspicious for varices related to sequela of portal venous hypertension. 4. trace free fluid noted in the lower pelvis. No free intraperitoneal air.. 5. No dilated loops of bowel. 6. Circumferential wall thickening involving the right colon and proximal transverse colon which could be due to nondistention versus less likely nonspecific colitis. Please correlate with clinical data. 7. Mild gallbladder wall thickening and small amount of pericholecystic fluid. Finding could be related to adjacent hepatic disease versus acute cholecystitis. Recommend abdominal ultrasound if there is clinical concern for cholecystitis. ADDENDUM: Correction made to typographical error in the impression Dictated by: Mary Jo Perez MD, PhD on 11/27/2016 at 18:31 Approved by: Mary Jo Perez MD, PhD on 11/27/2016 at 18:32 Invasive Procedures Endoscopy with ligation of esophageal varices on the day of admission Brief History This is a 46-year-old gentleman with a history of alcohol abuse who has had about 4 days of intermittent hematemesis and at least 2 episodes of black tarry stools. The patient has had progressive lightheadedness and weakness as well as dizziness. He had multiple episodes of hematemesis on Thursday morning, one episode on Thursday morning, and 2 episodes on Thursday. [facility] diagnosed with upper GI bleed with acute blood loss anemia and given 2 units of packed red blood cells. He denies really having any abdominal pain. He has no history of GI bleed. He rarely takes aspirin or ibuprofen or Aleve. He does have about a 20 year history of alcohol abuse but no clear-cut history of alcohol liver disease. He describes abnormal liver functions that his doctor warned may relate to alcohol. He has never had imaging of the liver that he is aware of. He is transferred with a Protonix drip for endoscopy from [facility]. There was imaging basic concern for portal vein thrombosis. The patient is currently not a candidate for anticoagulation given his upper GI bleed of unclear etiology. This will be validated with imaging here, specifically CT scan of the abdomen and pelvis with contrast. Hospital Course #. Acute upper GI bleed secondary to esophageal varices.. POA. Stable and resolved.. The patient will continue on clear liquids and likely advance to regular diet this afternoon. We will continue serial hematocrits, Protonix IV as well as octreotide through tomorrow morning. Patient underwent endoscopy with ligation of varices. He was treated with Protonix as a drip for 24 hours and then 40 IV twice a day. Octreotide was continued for 72 hours and then stopped. No evidence of rebleeding. #. Acute blood loss anemia, POA. Stable. Continue serial hematocrits. He received 2 units of blood as well as hospital an additional 2 here. His hematocrit remained stable after that . #. Alcohol abuse and possible dependence, POA. No evidence of withdrawal. We will continue to follow clinically. Continue support absolute alcohol abstinence. Ongoing discussion regarding the imperative of alcohol cessation #. Alcohol induced liver cirrhosis, POA. The patient is on empiric ceftriaxone although imaging does not indicate evidence of ascites. The importance of alcohol cessation was discussed with the patient today. No clinical deterioration. #. Possible portal vein thrombosis. Was ruled out with CT with contrast. This was ruled out. #. 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 Oral institute nadolol when clinically stable. Patient started on nadolol at time of discharge. Exam Vital Signs (Last) Date Time Temp Pulse Resp B/P Pulse Ox O2 Delivery O2 Flow Rate FiO2 11/30/16 08:52 37.2 79 18 149/84 97 Room Air 11/28/16 07:33 1.00 Test 11/27/16 14:37 11/27/16 15:00 11/27/16 23:20 11/28/16 03:30 Lactic Acid Level 0.9mmol/L (0.4-2.0) Neutrophils (%) (Auto) 65.4% (40-74) Lymphocytes (%) (Auto) 16.9% (14-46) Monocytes (%) (Auto) 15.3% (4-12) Eosinophils (%) (Auto) 1.0% (0-5) Basophils (%) (Auto) 0.6% (0-3) Prothrombin Time 12.9sec (8.1-12.5) Prothromb Time International Ratio 1.20ratio Hemoglobin A1c 5.7% (4.8-5.6) Prealbumin 14mg/dL (20-40) Troponin T 0.010ug/L (0.0-0.011) Sodium Level 136mEq/L (134-144) Potassium Level 3.8mEq/L (3.5-5.2) Chloride Level 101mEq/L (97-108) Carbon Dioxide Level 18mmol/L (18-29) Blood Urea Nitrogen 11mg/dL (6-24) Creatinine 0.57mg/dL (0.76-1.27) Estimat Glomerular Filtration Rate 168mL/min (>59) Glucose Level 104mg/dL (60-99) Calcium Level 7.8mg/dL (8.5-10.1) Magnesium Level 2.4mg/dL (1.6-2.6) Iron Level 22ug/dL (35-150) Total Iron Binding Capacity 349ug/dL (250-450) Percent Iron Saturation 6%sat (15-50) Unsaturated Iron Binding 326.5ug/dL Total Bilirubin 2.2mg/dL (0.0-1.2) Aspartate Amino Transf (AST/SGOT) 124U/L (0-50) Alanine Aminotransferase (ALT/SGPT) 41U/L (0-44) Alkaline Phosphatase 96U/L (25-150) Total Protein 5.8g/dL (6.4-8.4) Albumin 3.6g/dL (3.4-5.0) Hcolw-8-[id number] 196mg/dL (90-200) Triglycerides Level 158mg/dL (0-149) Cholesterol Level 116mg/dL (100-199) LDL Cholesterol, Calculated 69.400mg/dL (0-99) VLDL Cholesterol 31.600mg/dL HDL Cholesterol 15mg/dL (>39) Cholesterol/HDL Ratio 7.73 (0.0-4.4) Thyroid Stimulating Hormone (TSH) 0.589uIU/mL (0.450-4.500) Free Thyroxine 1.11ng/dL (0.82-1.77) Hepatitis A IgM Antibody Negative (Negative) Hepatitis B Surface Antigen Negative (Negative) Hepatitis B Core IgM Antibody Negative (Negative) Hepatitis C Antibody 0.1s/co ratio (0.0-0.9) Hepatitis C Comment Comment (.) Test 11/30/16 09:27 White Blood Count 6.8th/mm3 (3.8-10.1) Red Blood Count 3.38mil/mm3 (4.40-5.80) Hemoglobin 8.7g/dL (13.8-17.2) Hematocrit 27.6% (41.0-50.0) Mean Corpuscular Volume 81.7fL (81-100) Mean Corpuscular Hemoglobin 25.7pg (27.0-35.0) Mean Corpuscular Hemoglobin Concent 31.5% (32.0-37.0) Red Cell Distribution Width 19.7% (12.3-15.4) Platelet Count 144bil/L (150-400) Discharge Medications Discharge Medications Multivitamin (Men's Multi-Vitamin) 1 Each Tablet 1 EACH PO DAILY (Reported) Nadolol (Nadolol) 40 Mg Tablet 40 MG PO HS Prescribed by: CELESTINE GARCES MD Followup Plan Disposition: Home Discharge Diet: No restrictions Discharge Activity: No restrictions Patient Instructions No alcohol. Gastroenterology will call you with follow-up appointment within 2 weeks. Note Tylenol was given also irritate the liver. Follow-up Provider: Clint Garcia MD Follow-up with PCP in: 2 weeks Time spent 45 minutes Celestine Garces MD Nov 30, 2016 10:46
[2016-11-30 13:54] VITALS: BP 153/91; PULSE 76; RESP 18; O2SAT 98
[2016-11-30] MEDS: 0.9% Sodium Chloride 250 ML IV SCH (15:30)
--- NOTE | 2016-11-30 17:45 | NUR ---
Discharge of patient Reviewed discharged instructions with patient. Patient verbalized understanding. Patient discharged with prescription and instructions. IV and Telemetry previously discontinued. Patient left hospital with girlfriend to home self care.
== END 2016-11-30 15:30 | disposition home or self-care (01) | DRG 432 ==
LOC: CCU 13:56 → PCC 11-28 18:03
PROVIDERS: ADMIT Internal Medicine; ATTEND Internal Medicine Gastroenterology
PROC: 30233N1 Transfusion of Nonautologous Red Blood Cells into Peripheral Vein, Percutaneous Approach (ICD-10-PCS; 2016-11-27)
PROC: 06L34CZ Occlusion of Esophageal Vein with Extraluminal Device, Percutaneous Endoscopic Approach (ICD-10-PCS; principal; 2016-11-27 15:30)
DX: K70.30 Alcoholic cirrhosis of liver without ascites (principal); I85.11 Secondary esophageal varices with bleeding; D62 Acute posthemorrhagic anemia; K76.6 Portal hypertension; F12.90 Cannabis use, unspecified, uncomplicated; F17.200 Nicotine dependence, unspecified, uncomplicated; F10.20 Alcohol dependence, uncomplicated; K31.89 Other diseases of stomach and duodenum

== ENCOUNTER 2017-01-09 11:39 | Day surgery (SDC) | payer OTHER ==
[~2017-01-09] VITALS: Ht 172.7 cm; Wt 72.0 kg
[~2017-01-09 11:39] MED LIST: 0.9% Sodium Chloride 1,000 ML IV SCH; MULT-544 PO; NADO40TA PO; Sodium Chloride LOK Flush 10 mL Syringe IV PRN; fentaNYL-PF 50 mCg/mL 2 mL Inj IVPUSH PRN
[2017-01-09 13:11] VITALS: BP 114/72; PULSE 72; RESP 14; O2SAT 99
[2017-01-09 14:18] VITALS: BP 101/53; PULSE 75; RESP 16; O2SAT 97
[2017-01-09 14:28] VITALS: BP 103/54; PULSE 71; O2SAT 98
[2017-01-09 14:35] VITALS: BP 112/66; PULSE 82; RESP 16; O2SAT 99
--- NOTE | 2017-01-10 | ENDO ---
[address] [address] ENDOSCOPY PROCEDURE PATIENT: KYLE CHEW : 1975 MR#: [id number] ADMIT: 01/09/2017 JOB ID: [id number] DATE: 01/09/2017 PROCEDURE: Esophagogastroduodenoscopy. INDICATION: Variceal screening. The patient's ASA classification is 2. Mallampati score is 2. MEDICATIONS: Versed 6 mg, fentanyl 100 mcg. INSTRUMENT USED: GIF H 180-J. PROCEDURE DETAILS: After informed consent was obtained, the patient was brought into the GI suite, where he was placed on oxygen via nasal cannula and monitored with continuous pulse oximeter, telemetry, and blood pressure monitoring. A time-out was performed. Then, he was placed in the left lateral decubitus position and medications were administered for sedation. A bite block was placed. The standard esophagogastroduodenoscopy scope was inserted through the bite block and advanced under direct visualization to the second portion of the duodenum without difficulty. FINDINGS: 1. In the duodenal bulb, there was an approximately 2-3 mm erosion. The mucosa surrounding the erosion was also erythematous. Multiple biopsies were obtained. The remainder of the duodenal exam was otherwise unremarkable. 2. Normal appearing pylorus. In the antrum and body of the stomach, there was a mosaic appearance to the mucosa. 3. Retroflexed views in the gastric body did not reveal any gastric varices; however, there was continuation of the mosaic appearance of the mucosa noted. 4. The GE junction was at approximately 41 cm. Arising from the GE junction to approximately 36 cm, were two columns of trace esophageal varices that flattened out with insufflation. 5. The remainder of the esophagus appeared otherwise unremarkable. IMPRESSION: 1. Duodenal bulb erosions. 2. Portal gastropathy. 3. Trace esophageal varices that flattened out with insufflation. RECOMMENDATIONS: 1. Continue nadolol. 2. Follow up in GI clinic as scheduled. 3. Avoid NSAIDs. COMPLICATIONS: None. ESTIMATED BLOOD LOSS: Less than 5 mL.
--- NOTE | 2017-01-13 13:49 | PATH ---
SURGICAL PATHOLOGY Attending Physician:Asa Figueroa CASE STATUS: Signed Out PATIENT NAME: KYLE CHEW PID: [id number] : 1975 DATE COLLECTED:01/09/2017 00:00 SPECIMEN: Duodenum, Biopsy CLINICAL HISTORY: 1. DUODENAL BX FINAL DIAGNOSIS: 1.DUODENAL BIOPSY: CHANGES OF MILD CHRONIC DUODENITIS, NEGATIVE FOR ATYPIA. Negative for evidence of celiac disease. ICD10 K29.80 GROSS DESCRIPTION: Received in formalin, labeled with the patient' s name and "illegible", are two fragments of hopkins, soft tissue ranging in size from 0.1 x 0.1 x 0.1 cm to 0.2 x 0.1 x 0.1 cm. All fragments are totally submitted in cassette 1A. ([id number]) MICRO DESCRIPTION: See diagnosis. ICD-9 CODES: CPT CODES: 1: 51209 Electronically Signed Out Zander Fam MD [facility] [address], [place] [address] Technical component performed at [facility], [facility] [address], [place], [address]
== END 2017-01-09 23:59 | disposition home or self-care (01) ==
LOC: END 11:39
PROVIDERS: ATTEND Internal Medicine Gastroenterology
DX: K29.80 Duodenitis without bleeding (principal); I85.00 Esophageal varices without bleeding; K76.6 Portal hypertension; K31.89 Other diseases of stomach and duodenum; K70.9 Alcoholic liver disease, unspecified; F10.21 Alcohol dependence, in remission
CPT/HCPCS: 43239; G0500; J2250; J3010; J7030